=== PATIENT | male | born 2000 | race Caucasian/White ===

== ENCOUNTER 2022-05-30 23:23 | Emergency (ER) | payer MEDICAID ==
[2022-05-30 23:37] VITALS: BP 140/95; PULSE 95; O2SAT 97
--- NOTE | 2022-05-31 00:07 | ERPHSYRPT ---
- History of Present Illness Time Seen by Provider: 05/31/22 00:09 Source: patient Exam Limitations: no limitations Patient Subjective Stated Complaint: pt states he slipped on a notebook that was laying on the carpet at home, states he now has pain in right knee Triage Nursing Assessment: pt alert and oriented, ambulated to room with a limping gait, states he has pain 6/10 in r knee. no skin injury observed, no swelling present in r knee Physician History: 22-year-old male presents to our ED for evaluation of knee pain. Patient was at home and slipped on a no blood. Patient twisted his knee. No blunt trauma. P ain described as an ache that is localized. No radiation. Pain worse with palpation to the anterolateral aspect of the right knee. The involved extremities neurovascular tact distally. Compartments are soft. Cap refill less than 2 seconds. Patient is otherwise healthy. He voices no other complaints or concerns at this time. Patient declined pain medication. He said he is comfortable at rest Portions of this note were created with voice recognition technology. There may be grammatical, spelling, punctuation or sound alike errors Method of Injury: twisted Occurred: just prior to arrival Quality: constant Severity of Pain-Max: moderate Severity of Pain-Current: mild Lower Extremities Pain: knee: right Modifying Factors: Improves With: other (Weightbearing and palpation) Associated Symptoms: none Allergies/Adverse Reactions: No Known Drug Allergies Allergy (Unverified 01/28/14 19:41) Home Medications: No Reportable Medications [No Reported Medications] 01/28/14 [History] Hx Influenza Vaccination/Date Given: No Immunizations Up to Date: Yes Travel Risk - International Travel Have you traveled outside of the country in past 3 weeks: No - Coronavirus Screening Are you exhibiting any of the following symptoms?: No Close contact with a COVID-19 positive Pt in past 14-21 Days: No - Vaccine Status Have you recieved a Covid-19 vaccination: No - Review of Systems Constitutional: No Symptoms, No Fever, No Chills Eyes: No Symptoms Ears, Nose, & Throat: No Symptoms Respiratory: No Symptoms, No Cough, No Dyspnea Cardiac: No Symptoms, No Chest Pain, No Edema, No Syncope Abdominal/Gastrointestinal: No Symptoms, No Abdominal Pain, No Nausea, No Vomiting, No Diarrhea Genitourinary Symptoms: No Symptoms, No Dysuria Musculoskeletal: No Symptoms, No Back Pain, No Neck Pain Skin: No Symptoms, No Rash Neurological: No Symptoms, No Dizziness, No Focal Weakness, No Sensory Changes Psychological: No Symptoms Endocrine: No Symptoms Hematologic/Lymphatic: No Symptoms Immunological/Allergic: No Symptoms All Other Systems: Reviewed and Negative - Past Medical History Pertinent Past Medical History: No Neurological History: No Pertinent History ENT History: No Pertinent History Cardiac History: No Pertinent History Respiratory History: No Pertinent History Endocrine Medical History: No Pertinent History Musculoskeletal History: No Pertinent History GI Medical History: No Pertinent History History: No Pertinent History Psycho-Social History: No Pertinent History - Past Surgical History Past Surgical History: No - Social History Smoking Status: Never smoker Exposure to second hand smoke: No Drug Use: none Patient Lives Alone: No - Nursing Vital Signs Nursing Vital Signs: Initial Vital Signs Temperature 98.1 F 05/30/22 23:27 Pulse Rate 95 H 05/30/22 23:27 Respiratory Rate 18 05/30/22 23:27 Blood Pressure 140/95 05/30/22 23:27 O2 Sat by Pulse Oximetry 97 05/30/22 23:27 Pain Scale Pain Intensity 6 - Physical Exam General Appearance: alert Eyes, Ears, Nose, Throat Exam: moist mucous membranes Neck Exam: non-tender, supple Cardiovascular/Respiratory Exam: chest non-tender, normal breath sounds, regular rate/rhythm, no respiratory distress Gastrointestinal/Abdominal Exam: non-tender, guarding Back Exam: normal inspection, No vertebral tenderness Hips Exam: bilateral: non-tender, normal inspection, normal range of motion, no evidence of injury Legs Exam: bilateral leg: non-tender, normal inspection, normal range of motion, no evidence of injury Knees Exam: right knee: pain, soft tissue tenderness, other (The involved lower extremity is neurovascular tact distally. Compartments are soft. Cap refill less than 2 seconds.), left knee: non-tender, normal inspection, normal range of motion, no evidence of injury Ankle Exam: bilateral ankle: non-tender, normal inspection, normal range of motion, no evidence of injury Foot Exam: bilateral foot: non-tender, normal inspection, normal range of motion, no evidence of injury Neuro/Tendon Exam: normal sensation, normal motor functions Mental Status Exam: alert, oriented x 3, cooperative Skin Exam: normal color, warm, dry SpO2 Interpretation: normal SpO2: 97 O2 Delivery: Room Air - Course Nursing assessment & vital signs reviewed: Yes - Radiology Exams Knee X-ray Interpretation: Interpreted by me (No fractures or dislocations. No soft tissue abnormalities) Ordered Tests: Active Orders 24 hr Category Date Time Status KNEE (3 VIEWS) Stat Exams 05/30/22 23:58 Taken - Progress Progress: improved Progress Note: Patient reassessed. He is resting comfortably. Patient declined pain medication. X-ray negative for fracture dislocation. No soft tissue abnormalities. Patient requesting an Bryan wrap. This was provided by RN. Patient states he is ready for discharge. Patient agrees to follow-up with his primary care doctor within 48 hours for evaluation. Portions of this note were created with voice recognition technology. There may be grammatical, spelling, punctuation or sound alike errors 05/31/22 00:11 Counseled pt/family regarding: diagnosis, need for follow-up, rad results - Departure Departure Disposition: Home Clinical Impression: Knee sprain Condition: Stable Critical Care Time: No Referrals: MAHNAZ JARVIS MD [Primary Care Provider] - Follow up/PCP as directed Additional Instructions: Discharge/Care Plan LIZETTE OROURKE was seen on 05/31/22 in the Emergency Room. The patient was counseled regarding Diagnosis,Lab results, Imaging studies, need for follow up and when to return to the Emergency Room. Prescriptions given: Discharge Note I have spoken with the patient and/or caregivers. I have explained the patient's condition, diagnosis and treatment plan based on the information available to me at this time. I have answered the patient's and/or caregiver's questions and addressed any concerns. The patient and/or caregivers have as good understanding of the patient's diagnosis, condition and treatment plan as can be expected at this point. The vital signs have been stable. The patient's condition is stable and appropriate for discharge from the emergency department. The patient will pursue further outpatient evaluation with the primary care physician or other designated or consulting physician as outlined in the discharge instructions. The patient and/or caregivers are agreeable to this plan of care and follow-up instructions have been explained in detail. The patient and/or caregivers have received these instruction. The patient/and or caregivers are aware that any significant change in condition or worsening of symptoms should prompt an immediate return to this or the closest emergency department or call 911.
--- NOTE | 2022-05-31 09:05 | XRAY ---
Indication: Pain following fall. Comparison: None 3 view right knee demonstrates small nonspecific effusion and small medial condyle bone island. No other bony, articular, or soft tissue abnormalities.
== END 2022-05-31 00:15 | disposition home or self-care (01) ==
LOC: ED 23:23
DX: S83.91XA Sprain of unspecified site of right knee, initial encounter (principal); W18.41XA Slipping, tripping and stumbling without falling due to stepping on object, initial encounter; Z28.310 Unvaccinated for COVID-19
CPT/HCPCS: 73562; 99282